=== PATIENT | female | born 1985 ===

== ENCOUNTER 2020-03-18 04:56 | Inpatient (IN) | payer OTHER ==
[~2020-03-18] VITALS: Ht 175.3 cm; Wt 93.9 kg
[2020-03-20] MEDS ORDERED: INTEGRA F CAPS1 EACH PO (11:39)
== END 2020-03-21 10:57 | disposition home or self-care (01) | DRG 788 ==
LOC: LDR 04:56 → OB/GYN 04:56
PROVIDERS: ADMIT Obstetrics & Gynecology
PROC: 4A033R1 Measurement of Arterial Saturation, Peripheral, Percutaneous Approach (ICD-10-PCS; 2020-03-18)
PROC: 3E033VJ Introduction of Other Hormone into Peripheral Vein, Percutaneous Approach (ICD-10-PCS; 2020-03-18)
PROC: 4A1HXCZ Monitoring of Products of Conception, Cardiac Rate, External Approach (ICD-10-PCS; 2020-03-18)
PROC: 10D00Z1 Extraction of Products of Conception, Low, Open Approach (ICD-10-PCS; principal; 2020-03-18 16:00)
DX: O61.0 Failed medical induction of labor (principal); O62.0 Primary inadequate contractions; Z3A.39 39 weeks gestation of pregnancy; Z37.0 Single live birth

== ENCOUNTER 2022-03-10 09:55 | Day surgery (SDC) | payer OTHER ==
[~2022-03-10 09:55] MED LIST: INTEGRA F CAPS1 EACH PO
[2022-03-10] MEDS ORDERED: IBU800 MG PO (12:32)
[2022-03-10] MEDS ORDERED: PERCOCET 5-3251 EACH PO (12:32)
== END 2022-03-10 15:45 | disposition home or self-care (01) ==
LOC: CIR.AMB 09:55
PROVIDERS: ATTEND Obstetrics & Gynecology Gynecology
DX: D27.1 Benign neoplasm of left ovary (principal); N80.0 Endometriosis of uterus; Z64.1 Problems related to multiparity; Z20.822 Contact with and (suspected) exposure to COVID-19